=== PATIENT | female | born 2000 | race Caucasian/White ===

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

== ENCOUNTER 2019-03-24 13:08 | Emergency (ER) | payer MEDICAID ==
[~2019-03-24] VITALS: Ht 160 cm; Wt 73.8 kg
[~2019-03-24 13:08] MED LIST changes: +ACET500C5 PO; +AMOX500C2 PO; +CEPH-443 PO; +FERR134T PO; +IBUP-1544 PO; -IBUP800T25 PO; +PREN-19 PO
[2019-03-24 13:15] VITALS: BP 128/69; PULSE 108; RESP 20; Ht 160 cm; Wt 73.8 kg
--- NOTE | 2019-03-24 13:28 | ERD ---
ER Documentation Chief Complaint Chief Complaint rigth ear pain & sore throat x 1 day, 32 wks preg, no ap HPI Patient is a 18-year-old female, approximately 32 weeks , presents the ER for concerns of right ear pain and sore throat x1 day. Patient denies any fevers, cough, chest pain, shortness of breath, nausea, vomiting, vaginal bleeding, pelvic pain, vaginal discharge. ROS All systems reviewed and are negative except as per history of present illness. Medications Home Meds Active Scripts Acetaminophen* (Tylophen*) 500 Mg Capsule, 1 CAP PO Q6H PRN for PAIN AND OR ELEVATED TEMP, #20 CAP Prov:MARTHA YANEZ PA-C 03/24/19 Amoxicillin* (Amoxicillin*) 500 Mg Cap, 500 MG PO BID for 10 Days, CAP Prov:MARTHA YANEZ PA-C 03/24/19 Cephalexin* (Keflex*) 500 Mg Capsule, 500 MG PO TID for 7 Days, CAP Prov:SANJUANITA LEI MD 09/23/16 Oxycodone Hcl/Acetaminophen (Percocet) 1 Tab Tab, 2 TAB PO Q4H PRN for PAIN LEVEL 6-10, #30 TAB 0 Refills Prov:MONY AGEE MD 09/17/16 Ibuprofen* (Ibuprofen*) 800 Mg Tablet, 800 MG PO Q8, #20 TAB 0 Refills Prov:MONY AGEE MD 09/17/16 Allergies Allergies: Coded Allergies: No Known Allergy (Unverified , 08/01/15) PMhx/Soc History of Surgery: Yes (C SECTION) Anesthesia Reaction: No Hx Neurological Disorder: No Hx Respiratory Disorders: No Hx Cardiac Disorders: No Hx Psychiatric Problems: No Hx Miscellaneous Medical Probl: No Hx Alcohol Use: No Hx Substance Use: No Hx Tobacco Use: No FmHx Family History: No diabetes Physical Exam Vitals Vital Signs Date Temp Pulse Resp B/P (MAP) Pulse Ox O2 O2 Flow FiO2 Time Delivery Rate 03/24/19 97.6 108 20 128/69 96 13:15 (88) Physical Exam GENERAL: Well-developed, well-nourished female. Appears in no acute distress. HEAD: Normocephalic, atraumatic. No deformities or ecchymosis. EYE: Pupils equal, round, and reactive to light. EOMs intact. No conjunctival erythema. No eye discharge. ENT: External ear without any masses or tenderness. Right otitis media noted on exam. Left TM appears normal. No mastoid tenderness noted bilaterally. Nasal mucosa pink with no discharge. Oropharynx is pink without any tonsillar erythema or exudates. No uvula deviation. No kissing tonsils. NECK: Supple. No meningismus. Normal ROM of the neck. LUNG: Clear to auscultation bilaterally. No rhonchi, wheezing, rales or coarse breath sounds. HEART: Regular rate and rhythm. No murmurs, rubs or gallops. ABDOMEN: Gravid EXTREMITES: Equal pulses bilaterally. No peripheral clubbing, cyanosis or edema. No unilateral leg swelling. NEUROLOGIC: Alert and oriented to person, place and time. Moving all four e xtremities. 5/5 strength in all extremities. Normal speech. Steady gait SKIN: Normal color. Warm and dry. No rashes or lesions. Procedures/MDM MEDICAL DECISION MAKING: This is a 18-year-old female who presents with right ear pain and sore throat x1 day. Vital signs were reviewed. Patient was afebrile. Patient was not hypoxic. ENT exam is concerning for otitis media. Lung exam was normal.. Given these findings, the patients presentation is most consistent with otitis media. Low suspicion for pneumonia, meningitis, sinusitis, strep pharyngitis, epiglottitis or peritonsillar abscess. Patient had no vaginal bleeding or pelvic pain. Low suspicion for premature rupture of membranes or labor. Patient will be discharged and was advised to go to [facility] floor for [facility] clearance. PRESCRIPTIONS: Tylenol, Amoxicillin DISCHARGE: At this time, patient is stable for discharge and outpatient management. Supportive therapies such as OTC throat lozenges, salt water gurgles, popsicles and jello discussed. I have instructed the patient to follow-up with his/her primary care physician in 1-2 days. I have instructed the patient to promptly return to the ER for any new or worsening symptoms including increased pain, swelling, fever, nausea, vomiting, weakness or difficulty breathing. The patient and/or family expressed understanding of and agreement with this plan. All questions were answered. Home care instructions were provided. Disclaimer: Inadvertent spelling and grammatical errors are likely due to EHR/dictation software use and do not reflect on the overall quality of patient care. Also, please note that the electronic time recorded on this note does not necessarily reflect the actual time of the patient encounter. Departure Diagnosis: Primary Impression: Otitis media Otitis media type: unspecified Laterality: unspecified laterality Qualified Codes: H66.90 - Otitis media, unspecified, unspecified ear Additional Impression: Weeks of gestation: unspecified Qualified Codes: Z34.90 - Encounter for supervision of normal , unspecified, unspecified trimester Condition: Fair Patient Instructions: Otitis Media, Abx Tx (Adult) Referrals: [facility] YOU HAVE RECEIVED A MEDICAL SCREENING EXAM AND THE RESULTS INDICATE THAT YOU DO NOT HAVE A CONDITION THAT REQUIRES URGENT TREATMENT IN THE EMERGENCY DEPARTMENT. FURTHER EVALUATION AND TREATMENT OF YOUR CONDITION CAN WAIT UNTIL YOU ARE SEEN IN YOUR DOCTORS OFFICE WITHIN THE NEXT 1-2 DAYS. IT IS YOUR RESPONSIBILITY TO MAKE AN APPOINTMENT FOR FOLOW-UP CARE. IF YOU HAVE A PRIMARY DOCTOR --you should call your primary doctor and schedule an appointment IF YOU DO NOT HAVE A PRIMARY DOCTOR YOU CAN CALL OUR PHYSICIAN REFERRAL HOTLINE AT IF YOU CAN NOT AFFORD TO SEE A PHYSICIAN YOU CAN CHOSE FROM THE FOLLOWING [facility] [address] [facility]. [facility] [address] [facility] [facility] [address] [facility] [facility] [address] [facility] [facility] [address] [facility]. [facility]. [address] [facility]. [facility] YOU HAVE RECEIVED A MEDICAL SCREENING EXAM AND THE RESULTS INDICATE THAT YOU DO NOT HAVE A CONDITION THAT REQUIRES URGENT TREATMENT IN THE EMERGENCY DEPARTMENT. FURTHER EVALUATION AND TREATMENT OF YOUR CONDITION CAN WAIT UNTIL YOU ARE SEEN IN YOUR DOCTORS OFFICE WITHIN THE NEXT 1-2 DAYS. IT IS YOUR RESPONSIBILITY TO MA KE AN APPOINTMENT FOR FOLOW-UP CARE. IF YOU HAVE A PRIMARY DOCTOR --you should call your primary doctor and schedule and appointment IF YOU DO NOT HAVE A PRIMARY DOCTOR YOU CAN CALL OUR PHYSICIAN REFERRAL HOTLINE AT . IF YOU CAN NOT AFFORD TO SEE A PHYSICIAN YOU CAN CHOSE FROM THE FOLLOWING [facility] INSTITUTIONS: [facility] [address] [place] [address] [facility] [address] [place] [address] [facility] [address] [place] [address] Additional Instructions: GO TO OB TRIAGE IMMEDIATELY. Call your primary care doctor TOMORROW for an appointment during the next 1-2 days.See the doctor sooner or return here if your condition worsens before your appointment time. MARTHA YANEZ PA-C Mar 24, 2019 13:28
== END 2019-03-24 13:23 | disposition home or self-care (01) ==
LOC: E/R 13:08
DX: O99.89 Other specified diseases and conditions complicating pregnancy, childbirth and the puerperium (principal); H66.91 Otitis media, unspecified, right ear; Z3A.32 32 weeks gestation of pregnancy
CPT/HCPCS: 99283

== ENCOUNTER 2019-03-24 13:38 | Outpatient (CLI) | payer MEDICAID ==
[~2019-03-24] VITALS: Ht 157.5 cm; Wt 74.3 kg
[2019-03-24 14:14] VITALS: Ht 157.5 cm; Wt 74.3 kg
[2019-03-24] MEDS ORDERED: LACTATED RINGER'S 1,000 ML IV SCH (14:30)
[2019-03-24] MEDS ORDERED: TERBUTALINE 1 MG/ML INJ SC ONE (14:30)
--- NOTE | 2019-03-24 15:38 | PN ---
Triage Information Date/Time 2018 Reason for visit: 18-year-old female 2 para 1 at 32 weeks and 5 days gestation referred from emergency room for OB evaluation noticed to have uterine contractions Weeks of Gestation 32 weeks and 5 days /Para 2 para 1 Diabetes: none Hypertention: none Objective Heart Rate: 140's Heart Rate Comments Reactive Contractions: < 5 Minutes Apart Exam Cervix is long and closed Results/Medications Result Diagram: 03/24/19 1442 Results 24 hrs Laboratory Tests Test 03/24/19 14:31 03/24/19 14:42 Urine Color YELLOW Urine Clarity CLOUDY A Urine pH 6.0 Urine Specific [place] 1.021 Urine Ketones NEGATIVE Urine Nitrite NEGATIVE Urine Bilirubin NEGATIVE Urine Urobilinogen NEGATIVE Urine Leukocyte Esterase 2+ H Urine Microscopic RBC 3 Urine Microscopic WBC 12 H Urine Squamous Epithelial Cells MANY A Urine Bacteria FEW A Urine Mucus MODERATE Urine Hemoglobin NEGATIVE Urine Glucose NEGATIVE Urine Total Protein NEGATIVE White Blood Count 10.0 Red Blood Count 3.64 L Hemoglobin 9.6 L Hematocrit 30.8 L Mean Corpuscular Volume 84.6 Mean Corpuscular Hemoglobin 26.4 L Mean Corpuscular Hemoglobin Concent 31.2 L Red Cell Distribution Width 18.3 H Platelet Count 311 Mean Platelet Volume 9.8 # Immature Granulocytes % 1.500 H Neutrophils % 69.6 Lymphocytes % 20.9 Monocytes % 6.8 Eosinophils % 1.0 Basophils % 0.2 Nucleated Red Blood Cells % 0.0 Immature Granulocytes # 0.150 H Neutrophils # 7.0 Lymphocytes # 2.1 Monocytes # 0.7 Eosinophils # 0.1 Basophils # 0.0 Nucleated Red Blood Cells # 0.0 Medications Current Medications Lactated Ringer's 1,000 ml @ 250 mls/hr Q4H IV Last administered on 03/24/19at 14:29; Admin Dose 250 MLS/HR; Start 03/24/19 at 14:30 Imaging Results Biophysical profile score = 8/8 Cervix is closed with a length of 4.8 cm. No funneling or dilatation is seen. Disposition: Discharge Assessment/Plan Uterine contractions subsided after IV hydration and receiving 1 dose of subcutaneous [address] Place patient on bed and pelvic rest until delivery Follow-up patient as outpatient for care MONY AGEE MD Mar 24, 2019 15:38
--- NOTE | 2019-03-24 15:48 | TRIAGE ---
OB Triage Datetime Report Generated by CPN: 03/24/2019 15:48 Datetime: 03/24/2019 15:30 Stage of : OB Triage Maternal Assessment Level of Consciousness: Keenly Alert, Responsive DTR's/Clonus: DTRs 1+ Headache: Denies Breath Sounds, Left: Clear and Equal Breath Sounds, Right: Clear and Equal Nausea/Vomiting: Denies RUQ Epigastric Pain: Denies Labor Evaluation Frequency: X1 Monitor Mode: External Duration (sec)2399: 30 Quality: Mild Pattern: Normal: <= 5 Contractions in 10 Minutes Resting Tone [place]: Relaxed Heart Rate FHR Baseline Rate: 140 Monitor Mode: External US Variability: Moderate 6-25 bpm Accelerations: 15X15 Decelerations: None Category: Category I Pain Assessment Pain Scale: 0 Pain Presence: None/Denies Pain Type: N/A Pain Goal: 3 Vaginal Exam Membrane Status: Intact Datetime: 03/24/2019 14:30 Stage of : OB Triage Maternal Assessment Level of Consciousness: Keenly Alert, Responsive DTR's/Clonus: DTRs 1+ Headache: Denies Breath Sounds, Left: Clear and Equal Breath Sounds, Right: Clear and Equal Nausea/Vomiting: Denies RUQ Epigastric Pain: Denies Labor Evaluation Frequency: 1-3 Monitor Mode: External Duration (sec)2399: 30-50 Quality: Mild Pattern: Normal: <= 5 Contractions in 10 Minutes Resting Tone [place]: Relaxed Heart Rate FHR Baseline Rate: 140 Monitor Mode: External US Variability: Moderate 6-25 bpm Accelerations: 15X15 Decelerations: None Pain Assessment Pain Scale: 0 Pain Presence: None/Denies Pain Type: N/A Pain Goal: 3 Vaginal Exam Membrane Status: Intact Datetime: 03/24/2019 14:00 Stage of : OB Triage Maternal Assessment Level of Consciousness: Keenly Alert, Responsive DTR's/Clonus: DTRs 1+ Headache: Denies Blurred Vision: No Respiratory Effort: Unlabored Breath Sounds, Left: Clear and Equal Breath Sounds, Right: Clear and Equal Nausea/Vomiting: Denies RUQ Epigastric Pain: Denies Facial Edema: None Labor Evaluation Frequency: 1-3 Monitor Mode: External Duration (sec)2399: 30-50 Quality: Mild Pattern: Normal: <= 5 Contractions in 10 Minutes Resting Tone [place]: Relaxed Heart Rate FHR Baseline Rate: 140 Monitor Mode: External US Variability: Moderate 6-25 bpm Accelerations: 15X15 Decelerations: None Category: Category I Pain Assessment Pain Scale: 0 Pain Presence: None/Denies Pain Type: N/A Pain Goal: 3 Vaginal Exam Membrane Status: Intact Datetime: 03/24/2019 13:50 Stage of : OB Triage Assessment Type: Triage Maternal Assessment Level of Consciousness: Keenly Alert, Responsive DTR's/Clonus: DTRs 2+; No Clonus Headache: Denies Blurred Vision: No Respiratory Effort: Unlabored; Regular Rhythm; Equal Expansion Breath Sounds, Left: Clear and Equal Breath Sounds, Right: Clear and Equal Nausea/Vomiting: Denies RUQ Epigastric Pain: Denies Lower Extremities Edema: None Degree: None Upper Extremities Edema: None Degree: None Facial Edema: None Fall Risk Assessment History of Falling: (0) No Secondary Diagnosis: (0) No Ambulatory Aid: (0) Bedrest/Nurse Assist IV Therapy: (0) No Gait: (0) Normal/Bedrest/Immobile Mental Status: (0) Oriented to Own Ability Fall Score: 0 Fall Risk Score Definition: No Risk: No action required Datetime: 03/24/2019 13:40 EGA: 32.5 Datetime: 03/24/2019 13:34 Time of Arrival: 03/24/2019 13:34 Arrived By: Ambulatory Arrived From: Home Chief Complaint: PT CAME IN FROM ER TO BE OB CLEARED DUE TO A COLD Movement: Present Contractions: Denies/Absent Rupture of Membranes: Denies Vaginal Discharge: Denies Recent Sexual Intercouse: Denies Abdominal Trauma: Not Applicable Additional Patient Complaints: NONE Time Provider Notified: 03/24/2019 14:10 Provider Notified: SAMUEL Initial Plan: CX LENGHT, BPP, AINSLEY, CBC. UA, TERBUTALINE, LR
== END 2019-03-24 15:41 | disposition home or self-care (01) ==
LOC: OBT 13:38 → L-D 13:39 → OBT 15:41
PROVIDERS: ATTEND Obstetrics & Gynecology
DX: O47.03 False labor before 37 completed weeks of gestation, third trimester (principal); Z3A.32 32 weeks gestation of pregnancy
CPT/HCPCS: 36415; 76817; 76818; 81001; 85025; 96360; G0463; J3105; J7120

== ENCOUNTER 2019-04-06 18:50 | Outpatient (CLI) | payer MEDICAID, OTHER ==
[~2019-04-06] VITALS: Ht 157.5 cm; Wt 72.6 kg
[~2019-04-06 18:50] MED LIST changes: -ACET500C5 PO; -AMOX500C2 PO; -CEPH-443 PO; -IBUP-1544 PO; -PERCOCET PO
[2019-04-06] MEDS ORDERED: TERBUTALINE 1 MG/ML INJ SC ONE (21:00)
[2019-04-06 21:03] VITALS: BP 109/63; PULSE 90; RESP 15
--- NOTE | 2019-04-06 21:57 | PN ---
Triage Information Date/Time April 06, 2019 Reason for visit: Uterine contractions Weeks of Gestation 34w 4d /Para 3/1 Diabetes: none Hypertention: none Additional information Pt reports pelvic pressure and pain q 30 to 60 minutes since 0600. No leaking or bleeding. +FM. Pt does report dysuria. Denies flank pain. No fevers or chills. PMHx: none. PSHx: x 1. NKDA. Objective Vital Signs Date Temp Pulse Resp B/P (MAP) Pulse Ox O2 O2 Flow FiO2 Time Delivery Rate 04/06/19 98.3 90 15 109/63 Room Air 21:03 (78) Heart Rate: 130's Heart Rate Comments Accels to 160 BPM. No decels. Contractions: None (but does have uterine irritability) Exam No CVAT. Results/Medications Results 24 hrs Laboratory Tests Test 04/06/19 20:15 Urine Color DAVE Urine Clarity CLOUDY A Urine pH 6.0 Urine Specific [place] 1.019 Urine Ketones NEGATIVE Urine Nitrite POSITIVE A Urine Bilirubin NEGATIVE Urine Urobilinogen NEGATIVE Urine Leukocyte Esterase 3+ H Urine Microscopic RBC 11 H Urine Microscopic WBC > 182 H Urine Squamous Epithelial Cells MODERATE Urine Bacteria MANY A Urine Mucus MANY A Urine Hemoglobin NEGATIVE Urine Glucose NEGATIVE Urine Total Protein 1+ H Medications Current Medications Nitrofurantoin Macrocrystals (Macrobid) 100 mg ONCE ONCE PO ; Start 04/06/19 at 22:00; Stop 04/06/19 at 22:01 Imaging Results BPP 04/02 with an AINSLEY of 22. EFW 2628 grams. VTX. CVL 3.2 cm and closed. Disposition: Discharge Assessment/Plan A: IUP at 34w 4d. False labor. UTI. P: P.O. hydration and terbutaline x 1. Macrobid 100 mg p.o. x 1 now and an Rx written for home for BID x 7 days. Pt encouraged to fill the Rx PRAKASH to ensure she does not return with a kidney infection. CHAY MILLER MD Apr 06, 2019 21:57
[2019-04-06] MEDS ORDERED: NITROFURANTOIN (SR) 100 MG CAP PO ONE (22:00)
--- NOTE | 2019-04-07 08:32 | TRIAGE ---
OB Triage Datetime Report Generated by CPN: 04/07/2019 08:31 Datetime: 04/06/2019 20:00 Time of Arrival: 04/07/2019 18:39 EGA: 34.5 Arrived By: Wheelchair Arrived From: Home Chief Complaint: hx c/s x1 c/o pelvic pressure and ucs since 0600 Movement: Present Contractions: Irregular Time Contractions Began: 04/06/2019 06:00 Contractions: q30-60 Rupture of Membranes: Denies Vaginal Bleeding: None Vaginal Discharge: Denies Recent Sexual Intercouse: Denies Abdominal Trauma: Not Applicable Patient Complaints: Cramping; Other Time Provider Notified: 04/06/2019 20:50 Provider Notified: Dr Alexander Initial Plan: UA, CVL,EFW,BPP,TERB,PO HYDRATION Datetime: 03/24/2019 13:50 Fall Risk Assessment Fall Score: 0 Fall Risk Score Definition: No Risk: No action required Datetime: 03/24/2019 13:40 EGA: 32.5
== END 2019-04-06 23:13 | disposition home or self-care (01) ==
LOC: OBT 18:50 → L-D 18:52 → OBT 23:13
PROVIDERS: ATTEND Obstetrics & Gynecology
DX: O47.03 False labor before 37 completed weeks of gestation, third trimester (principal); O23.43 Unspecified infection of urinary tract in pregnancy, third trimester; Z3A.34 34 weeks gestation of pregnancy
CPT/HCPCS: 76815; 76817; 76818; 81001; 87086; J3105; Z7500; Z7610; G0463

== ENCOUNTER 2019-04-19 20:45 | Outpatient (CLI) | payer OTHER ==
[~2019-04-19] VITALS: Ht 154.9 cm; Wt 77.8 kg
[~2019-04-19 20:45] MED LIST changes: +NIFE10CA PO
[2019-04-19 21:09] VITALS: BP 116/68; PULSE 96; RESP 18; Ht 154.9 cm; Wt 77.8 kg
[2019-04-19] MEDS ORDERED: LACTATED RINGER'S 1,000 ML IV ONE (22:30)
[2019-04-19] MEDS ORDERED: BETAMET NA PHOS/AC(6 MG/ML) 2 ML INJ SYG IM ONE (22:30)
[2019-04-19] MEDS ORDERED: TERBUTALINE 1 MG/ML INJ SC ONE (22:30)
[2019-04-20] MEDS ORDERED: TERBUTALINE 1 MG/ML INJ SC ONE (03:00)
[2019-04-20] MEDS ORDERED: NIFEdipine 10 MG CAP PO ONE (04:30)
== END 2019-04-20 05:10 | disposition home or self-care (01) ==
LOC: L-D 20:45 → OBT 20:45
PROVIDERS: ATTEND Obstetrics & Gynecology
DX: O47.03 False labor before 37 completed weeks of gestation, third trimester (principal); Z3A.35 35 weeks gestation of pregnancy
CPT/HCPCS: 36415; 76818; 81001; 84112; 85025; 96360; 96372; J0702; J3105; J7120; Z7500; Z7610; 81003; G0463

== ENCOUNTER 2019-04-20 11:59 | Inpatient (IN) | payer OTHER ==
[~2019-04-20] VITALS: Ht 157.5 cm; Wt 78.0 kg
[~2019-04-20 11:59] MED LIST changes: -FERR134T PO
[2019-04-20 12:42] VITALS: Ht 157.5 cm; Wt 78.0 kg
[2019-04-20 12:43] VITALS: BP 109/64; PULSE 118; RESP 18
[2019-04-20] MEDS ORDERED: TERBUTALINE 1 MG/ML INJ SC ONE (13:00)
[2019-04-20] MEDS ORDERED: NIFEdipine 10 MG CAP PO ONE (15:30)
[2019-04-20] MEDS: LACTATED RINGER'S 1,000 ML IV SCH (15:46)
[2019-04-20] MEDS ORDERED: LACTATED RINGER'S 1,000 ML IV SCH (16:50)
[2019-04-20] MEDS ORDERED: NIFEdipine 10 MG CAP PO SCH (18:00)
[2019-04-20] MEDS ORDERED: BETAMET NA PHOS/AC(6 MG/ML) 2 ML INJ SYG IM ONE (22:00)
[2019-04-20] MEDS: NIFEdipine 10 MG CAP PO SCH (22:04)
[2019-04-21] MEDS: LACTATED RINGER'S 1,000 ML IV SCH (03:40)
[2019-04-21] MEDS: NIFEdipine 10 MG CAP PO SCH ×2 (03:41→10:21)
== END 2019-04-21 11:47 | disposition home or self-care (01) | DRG 833 ==
LOC: OBT 11:59 → L-D 12:01 → OBT 16:44 → L-D 16:45
PROVIDERS: ADMIT Obstetrics & Gynecology; ATTEND Obstetrics & Gynecology
DX: O60.03 Preterm labor without delivery, third trimester (principal); Z3A.35 35 weeks gestation of pregnancy
CPT/HCPCS: 36415; 96360; G0463; J0702; J3105; J7120